=== PATIENT | female | born 1975 | race African-American/Black ===

== ENCOUNTER 2017-01-19 05:34 | Emergency (ER) | payer OTHER ==
[2017-01-19 06:05] VITALS: BMI 29.0
--- NOTE | 2017-01-19 06:13 | PDOC ---
History of Present Illness - General Stated Complaint: COUGHING Time Seen by Provider: 01/19/17 05:54 - History of Present Illness Initial Comments: 01/19/17 06:09 Patient is a 41 y.o. female @ 36 weeks gestation who presents to our ED with acute exacerbation of a 2 week h/o of dry intermittently productive cough, though patient did note blood streaks in cough yesterday and today prompting her visit to the Emergency Department. Patient denies any associated fevers/ night sweats, chills, nausea, vomiting, diarrhea or constipation but endorse pleuritic chest pain. Patient's children @ bedside also have been coughing and were evaluated by ecological economist earlier this week and given cough supressant. Patient is a [place] immigrant and denies any recent travel or known TB contacts Past History - Past Medical History Allergies/Adverse Reactions: Allergies Allergy/AdvReac Type Severity Reaction Status Date / Time No Known Allergies Allergy Verified 01/19/17 06:11 Home Medications: Ambulatory Orders Acetaminophen 325 mg PO PRN 01/19/17 Diphenhydramine [Benadryl Oral Solution -] 12.5 mg PO Q4H 01/19/17 Multivit with Iron-Minerals [Compete] 1 each PO DAILY 01/19/17 - Suicide/Smoking/Psychosocial Hx Smoking History: Never smoked Hx Alcohol Use: No Drug/Substance Use Hx: No Review of Systems - Review of Systems Constitutional: No: Chills, Fever Respiratory: Yes: Cough *Physical Exam - Vital Signs Last Vital Signs Temp Pulse Resp BP Pulse Ox 97.7 F 97 H 18 113/66 97 01/19/17 06:02 01/19/17 06:02 01/19/17 06:02 01/19/17 06:02 01/19/17 06:02 - Physical Exam General Appearance: Yes: Nourished, Appropriately Dressed Neck: positive: Trachea midline, Supple. negative: Lymphadenopathy (R), Lymphadenopathy (L) Respiratory/Chest: positive: Lungs Clear, Normal Breath Sounds. negative: Labored Respiration, Rapid RR, Crackles, Rales, Rhonchi, Stridor, Wheezing Cardiovascular: positive: S1, S2, Tachycardia Gastrointestinal/Abdominal: positive: Normal Bowel Sounds, Soft Musculoskeletal: negative: CVA Tenderness (R), CVA Tenderness (L) Extremity: positive: Normal Capillary Refill, Normal Inspection Integumentary: positive: Normal Color, Dry, Warm Neurologic: positive: Fully Oriented, Alert ED Treatment Course - LABORATORY CBC & Chemistry Diagram: 01/19/17 06:43 01/19/17 06:43 Medical Decision Making - Medical Decision Making 01/19/17 06:13 Patient is a 41 y.o. female who presents with exacerbation of a 2 week h/o cough. As patient denies fevers/night sweats, clinical suspicion for TB is low. Patient's children @ bedside were medically evaluated for similar symptoms. On PE, lungs CLTA B/L suggesting upper airway disease PLAN: 1. CBC, CMP 2. UA 3. IV NS 4. Benadryl --> dry secretions, reduce cough by decreasing post nasal drip Reasess with planned dispo to OB evaluation then home 01/19/17 07:22 Patient signed out to Dr. Deng (Resident) and Dr. Brown (Attending) *DC/Admit/Observation/Transfer Diagnosis at time of Disposition: Cough - Referrals Referrals: Lincoln Mandel MD [Primary Care Provider] - - Patient Instructions - Post Discharge Activity
--- NOTE | 2017-01-19 06:16 | PDOC ---
Attending Attestation - Resident Resident Name: Rosalia Suarez - ED Attending Attestation I have performed the following: I have examined & evaluated the patient, The case was reviewed & discussed with the resident, I agree w/resident's findings & plan, Exceptions are as noted <Laura Dsouzaan - Last Filed: 01/19/17 06:15> - HPI HPI: 01/19/17 06:34 Patient is a 41 year old female, Full term ,with a significant past medical history of who presents to the ED with complaints of cough that began 2 weeks ago. Patient reports experiencing slight cough beginning 2 weeks ago but states it intensifying last night. She reports noticing bloody streaks mixed with sputum in her productive cough last night and this morning. Patient states the presence of blood within her sputum worried her and prompted her to come to the ED for further evaluation. She reports to be experiencing intermittent chest pain secondary to cough. Patient states she is currently in full term and is scheduled to be induced next week. Denies nausea, vomiting. Denies fever, chills. Denies abdominal cramps, vaginal bleeding. Denies contact with sick individuals, out of state travel. Denies any other symptoms. Allergies: None Social history: Lives with family. No smoking. No alcohol. No illicit drugs. Surgical history: None PMD: Dr. Lincoln Mandel <Harlan Calvo - Last Filed: 01/19/17 06:34>
[2017-01-19] MEDS ORDERED: SODIUM CHLORIDE 0.9% 1000 ML INFUS.BAG IV ONE (06:19)
[2017-01-19 07:11] LABS: URINE APPEARANCE SLCLOUDY; URINE BILIRUBIN NEGATIVE (NEGATIVE); URINE BLOOD 1+ (NEGATIVE); URINE COLOR LTYELLOW; URINE GLUCOSE (UA) NEGATIVE (NEGATIVE); URINE KETONE NEGATIVE (NEGATIVE); URINE LEUK ESTERASE NEGATIVE (NEGATIVE); URINE NITRITE NEGATIVE (NEGATIVE); URINE PROTEIN NEGATIVE (NEGATIVE); URINE UROBILINOGEN NEGATIVE mg/dL (0.2-1.0)
[2017-01-19 07:17] LABS: BASOPHIL 0.6 % (0-2.0); EOSINOPHIL 3.1 % (0-4.5); MCH 30.9 pg (25.7-33.7); MCHC 32.7 g/dl (32.0-36.0); MEAN CELL VOLUME 94.5 fl (80-96); MEAN PLT VOLUME 10.2 fl (7.5-11.1); NEUTROPHILS 53.1 % (42.8-82.8); PLATELET COUNT 151 K/MM3 (134-434); RDW 13.7 % (11.6-15.6); WHITE BLOOD COUNT 5.4 K/mm3 (4.0-10.0)
[2017-01-19 07:24] LABS: URINE BACTERIA MANY /hpf (NONE SEEN); URINE MUCUS RARE; URINE RBC 6 /hpf (0-3); URINE WBC 1 /hpf (3-5)
--- NOTE | 2017-01-19 07:24 | PDOC ---
*Physical Exam - Vital Signs Last Vital Signs Temp Pulse Resp BP Pulse Ox 97.7 F 97 H 18 113/66 98 01/19/17 06:07 01/19/17 06:07 01/19/17 06:07 01/19/17 06:07 01/19/17 06:07 ED Treatment Course - LABORATORY CBC & Chemistry Diagram: 01/19/17 06:43 01/19/17 06:43 - ADDITIONAL ORDERS Additional order review: Laboratory Results 01/19/17 06:43 Urine Color Ltyellow Urine Appearance Slcloudy Urine pH 6.0 Ur Specific Kirk 1.010 Urine Protein Negative Urine Glucose (UA) Negative Urine Ketones Negative Urine Blood 1+ H Urine Nitrite Negative Urine Bilirubin Negative Urine Urobilinogen Negative - Medications Given in the ED: ED Medications Discontinued Medications Generic Name Dose Route Start Last Admin Trade Name Freq PRN Reason Stop Dose Admin Sodium Chloride 1,000 ml 01/19/17 06:19 01/19/17 06:53 Normal Saline - IV 01/19/17 06:20 1,000 ml ONCE ONE Administration Medical Decision Making - Medical Decision Making 01/19/17 07:24 Care taken over from Dr. Suarez. 01/19/17 08:16 Patient reports some relief from cough and labs grossly wnl as below. Will discharge to be evaluated by [employer] before returning home. Laboratory Results - last 24 hr 01/19/17 01/19/17 01/19/17 06:43 06:43 06:43 WBC 5.4 RBC 3.53 L Hgb 10.9 Hct 33.4 MCV 94.5 MCH 30.9 MCHC 32.7 RDW 13.7 Plt Count 151 MPV 10.2 Neutrophils % 53.1 Lymphocytes % 30.9 Monocytes % 12.3 H Eosinophils % 3.1 Basophils % 0.6 Sodium 139 Potassium 4.3 Chloride 109 H Carbon Dioxide 22 Anion Gap 8 BUN 5 L Creatinine 0.5 L Creat Clearance w eGFR > 60 Random Glucose 93 Calcium 8.6 Total Bilirubin 0.4 AST 20 ALT 13 Alkaline Phosphatase 190 H Total Protein 6.2 L Albumin 2.3 L Beta HCG, Quant 83885.9 Urine Color Ltyellow Urine Appearance Slcloudy Urine pH 6.0 Ur Specific Kirk 1.010 Urine Protein Negative Urine Glucose (UA) Negative Urine Ketones Negative Urine Blood 1+ H Urine Nitrite Negative Urine Bilirubin Negative Urine Urobilinogen Negative Urine WBC (Auto) 1 Urine RBC (Auto) 6 Ur Epithelial Cells Moderate Urine Bacteria Many Urine Mucus Rare *DC/Admit/Observation/Transfer Diagnosis at time of Disposition: Cough - Discharge Dispostion Disposition: HOME - Referrals Referrals: Lincoln Mandel MD [Primary Care Provider] - - Patient Instructions Printed Discharge Instructions: DI for Cough -- Adult Additional Instructions: Please return if any fever, pain, or other concerning symptoms. - Post Discharge Activity
[2017-01-19 07:38] LABS: ALBUMIN 2.3 g/dl (3.4-5.0); ALK PHOS 190 U/L (45-117); ANION GAP 8 (8-16); BILIRUBIN,TOTAL 0.4 mg/dL (0.2-1.0); CALCIUM 8.6 mg/dL (8.5-10.1); CO2 22 mmol/L (21-32); CREATININE 0.5 mg/dL (0.55-1.02); GLUCOSE,RANDOM 93 mg/dL (74-106); SGOT/AST 20 U/L (15-37); SGPT/ALT 13 U/L (12-78); TOT PROT 6.2 g/dl (6.4-8.2)
[2017-01-19 09:23] VITALS: BP 123/80; PULSE 90; TEMP 98.3
[2017-01-19 17:53] LABS: URINE LEUK ESTERASE Negative (NEGATIVE)
== END 2017-01-19 09:55 | disposition home or self-care (01) ==
LOC: JER 05:34
PROC: 3E0F7GC Introduction of Other Therapeutic Substance into Respiratory Tract, Via Natural or Artificial Opening (ICD-10-PCS; principal; 2017-01-19)
DX: O26.893 Other specified pregnancy related conditions, third trimester (principal); Z3A.32 32 weeks gestation of pregnancy; R05 Cough
CPT/HCPCS: 36415; 80053; 81003; 81015; 84702; 85025; 87804; 96360; 99282-25

== ENCOUNTER 2017-08-19 08:58 | Emergency (ER) | payer OTHER ==
[2017-08-19 09:15] VITALS: TEMP 99; BMI 25.0
--- NOTE | 2017-08-19 09:15 | PDOC ---
Attending Attestation - Resident Resident Name: Rajesh Christian - Medical Decision Making 08/19/17 10:02 Pt presents to the ED complaining of pelvic pain immediately following her period. Abdomen is non tender. Differential includes ovarian cyst, fibroid, dysmenorrhea, endometriosis, PID, less likely ovarian torsion. unlikely appendicitis, given her prior history of a similar episode that immediately followed her period and her lack of abdominal tenderness. Will check labs and pelvic exam, check transvaginal US and reassess. Will give pain control with IV toradol. <Meryl Brown - Last Filed: 08/19/17 10:00> - HPI HPI: The patient is a 42 year old female with a PMHx of 3 previous C-sections ( recent 01/2017) who presents with lower abdominal pain and cramping since this morning. She states that the abdominal pain began post-menses and describes it as constant cramping that does not radiate. She also notes nausea and vomitting (non-bilious, non-bloody) as well a non-bloody diarrhea (4x). She reports having this pain once before approximately 2 weeks ago. At the time, she was seen at [facility] and had an US where they found an ovarian cyst. LMP ended yesterday. She notes recent IUD placement after her last 01/2017. She has an appointment with her IMAGERY ANALYST this week. Denies fever, chills. Denies any urinary complaints. 08/19/17 11:31 - Physicial Exam PE: GENERAL: Awake, alert, and fully oriented, in no moderate distress HEAD: No signs of trauma EYES: PERRLA, EOMI, sclera anicteric, conjunctiva clear ENT: Auricles normal inspection, hearing grossly normal, nares patent, oropharynx clear without exudates. Moist mucosa NECK: Normal ROM, supple, no lymphadenopathy, JVD, or masses LUNGS: Breath sounds equal, clear to auscultation bilaterally. No wheezes, and no crackles HEART: Regular rate and rhythm, normal S1 and S2, no murmurs, rubs or gallops ABDOMEN: Soft, nontender, normoactive bowel sounds. No guarding, no rebound. No masses EXTREMITIES: Normal range of motion, no edema. No clubbing or cyanosis. No cords, erythema, or tenderness NEUROLOGICAL: Cranial nerves II through XII grossly intact. Normal speech, normal gait SKIN: Warm, Dry, normal turgor, no rashes or lesions noted. 08/19/17 11:30 <Alexandra Sims - Last Filed: 08/19/17 11:32>
[2017-08-19] MEDS ORDERED: KETOROLAC TROMETHAMINE 30 MG/1 ML VIAL IVPUSH ONE (09:39)
--- NOTE | 2017-08-19 09:58 | PDOC ---
History of Present Illness - General Chief Complaint: Pain Stated Complaint: ABD PAIN Time Seen by Provider: 08/19/17 09:15 History Source: Patient, Family () Exam Limitations: No Limitations - History of Present Illness Initial Comments: The patient is a 42F with a PMH of C/S x3 (last 01/2017) who presents with generalized cramping pelvic pain since 0600 today. She states the pain does not radiate is associated with following her menses, N and NBNB Vx3, as well as non- bloodly diarrhea x4. She reports having this pain once before two weeks ago and was seen at [facility] where her states they did an US and thinks they found a ovarian cyst. She denies fevers, chills, changes in menstruation, clots , dysuria, or hematuria. LMP ended yesterday. She also reports that her last C/S was 01/2017 at which time she had an IUD placed. She has not had an IUD before this one. She also has an appointment with her pillar worker this coming week. 08/19/17 09:47 08/19/17 10:07 Severity: moderate Past History - Travel Traveled outside of the country in the last 30 days: No Close contact w/someone who was outside of country & ill: No - Past Medical History Allergies/Adverse Reactions: Allergies Allergy/AdvReac Type Severity Reaction Status Date / Time No Known Allergies Allergy Verified 08/19/17 09:15 Home Medications: Ambulatory Orders Ibuprofen 800 mg PO TID PRN 10 Days #30 tablet 08/19/17 Oxycodone HCl/Acetaminophen [Percocet 5-325 mg Tablet] 1 - 2 tab PO Q4H CVA: No COPD: No CHF: No Diabetes: No GI Disorders: No HTN: No Kidney Stones: No Seizures: No - Surgical History Abdominal Surgery: Yes (C/S x3) - Reproductive History LMP Normal: No (associated with increased pain x1) (#): 3 Para: 3 Ectopic : No Endometrial CA: No Tubal Ligation: No - Immunization History Immunization Up to Date: Yes - Suicide/Smoking/Psychosocial Hx Smoking History: Never smoked Hx Alcohol Use: No Drug/Substance Use Hx: No Review of Systems - Review of Systems Constitutional: Yes: Chills. No: Fever, Weakness HEENTM: No: Blurred Vision, Nose Congestion, Throat Pain, Throat Swelling, Difficulty Swallowing Respiratory: No: Orthopnea, Shortness of Breath, SOB with Exertion Cardiac (ROS): No: Chest Pain, Palpitations, Syncope ABD/GI: Yes: See HPI : No: Burning, Dysuria, Discharge, Hematuria Musculoskeletal: No: Muscle Pain, Muscle Weakness Integumentary: No: Pruritus, Rash Neurological: No: Headache, Numbness Psychiatric: No: Anxiety, Depression Endocrine: No: Intolerance to Cold, Intolerance to Heat Hematologic/Lymphatic: No: Blood Clots, Easy Bruising, Bleeding Diathesis *Physical Exam - Vital Signs Last Vital Signs Temp Pulse Resp BP Pulse Ox 99 F 73 18 117/103 100 08/19/17 08:59 08/19/17 08:59 08/19/17 08:59 08/19/17 08:59 08/19/17 08:59 - Physical Exam General Appearance: Yes: Moderate Distress HEENT: positive: JOHN, Normal ENT Inspection, Normal Voice Neck: positive: Trachea midline, Supple. negative: Lymphadenopathy (R), Lymphadenopathy (L) Respiratory/Chest: positive: Lungs Clear, Normal Breath Sounds Cardiovascular: positive: Regular Rhythm, Regular Rate, S1, S2. negative: Edema , JVD, Murmur Vascular Pulses: Femoral (R): 2+, Femoral (L): 2+, Carotid (R): 2+, Carotid (L) : 2+, Dorsalis-Pedis (R): 2+, Doralis-Pedis (L): 2+ Female Pelvic Exam: positive: other. negative: vaginal bleeding (Speculum exam wihtout significant findings. Bimanual exam significant for cervical motion tenerness and palpation of the left adenexa) Gastrointestinal/Abdominal: positive: Normal Bowel Sounds, Soft. negative: Distended, Guarding, Rebound Musculoskeletal: negative: CVA Tenderness, Decreased Range of Motion Extremity: positive: Normal Capillary Refill Integumentary: positive: Normal Color, Warm Neurologic: positive: dye penetrant testing technician II-XII NML intact, Fully Oriented, Alert, Motor Strength 5/5 ED Treatment Course - LABORATORY CBC & Chemistry Diagram: 08/19/17 10:20 08/19/17 10:20 Medical Decision Making - Medical Decision Making The patient is a 42F who presents with pelvic pain s/p menses since 0600 today. She was recently seen at [facility] and may have been told she has an ovarian cyst. DDx: GC/chlamydia/STI, ovarian cyst, ovarian torsion, uterine fibroid, ectopic ED Course: -BMP, CBC, UA, UPreg, Pelvic US Pelvic exam sig for Left sided tenderness and cervical motion tenderness -GC chlamydia cervical culture sent 08/19/17 11:40 Pelvic US sig for small R ovarian cyst Patient determined to be suitable for DC -Cramping Pelvic Pain --Ibuprofen 800mg PO Q8H PRN 08/19/17 12:59 *DC/Admit/Observation/Transfer Diagnosis at time of Disposition: Abdominal cramping - Discharge Dispostion Disposition: HOME Condition at time of disposition: Good Decision to Admit order: No - Prescriptions Prescriptions: Ibuprofen 800 mg PO TID PRN 10 Days #30 tablet PRN Reason: Pain - Referrals Referrals: Lincoln Mandel MD [Primary Care Provider] - - Patient Instructions Additional Instructions: You were seen today for pelvic cramping. Your ultrasound was significant for Right ovarian simple cyst. You were prescribed Ibuprofen which you can take 800mg up to three times a day. You should keep your appointment with you Electronics Technology Instructor this week. Return to the Emergency Department if your pain worsens , you begin experiencing abnormal vaginal bleeding, or fevers. - Post Discharge Activity
[2017-08-19] MEDS ORDERED: KETOROLAC TROMETHAMINE 30 MG/1 ML VIAL ONE (10:05)
[2017-08-19 10:27] LABS: HEMATOCRIT 37.2 % (32.4-45.2); HEMOGLOBIN 12.2 GM/dL (10.7-15.3); MCH 29.2 pg (25.7-33.7); MCHC 32.8 g/dl (32.0-36.0); MEAN PLT VOLUME 8.8 fl (7.5-11.1); PLATELET COUNT 222 K/MM3 (134-434); RBC 4.17 M/mm3 (3.60-5.2); RDW 13.9 % (11.6-15.6); WHITE BLOOD COUNT 9.8 K/mm3 (4.0-10.0)
[2017-08-19 11:00] LABS: ANION GAP 5 (8-16); BLOOD UREA NITROGEN 14 mg/dL (7-18); CALCIUM 8.8 mg/dL (8.5-10.1); CHLORIDE 111 mmol/L (98-107); CO2 23 mmol/L (21-32); CREATININE 0.9 mg/dL (0.55-1.02); GLUCOSE,RANDOM 113 mg/dL (74-106); POTASSIUM 4.1 mmol/L (3.5-5.1); SODIUM 139 mmol/L (136-145)
[2017-08-19 11:50] LABS: HCG,QUALITATIVE URINE NEGATIVE
[2017-08-19 12:22] LABS: URINE APPEARANCE TURBID; URINE BILIRUBIN NEGATIVE (<2.0 mg/dL); URINE COLOR YELLOW; URINE GLUCOSE (UA) NEGATIVE (NEGATIVE); URINE KETONE TRACE (NEGATIVE); URINE LEUK ESTERASE TRACE (NEGATIVE); URINE NITRITE NEGATIVE (NEGATIVE); URINE PROTEIN NEGATIVE (NEGATIVE); URINE UROBILINOGEN NEGATIVE mg/dL (0.2-1.0)
[2017-08-19 12:37] LABS: EPI CELLS RARE /HPF (FEW); TRIPLE PHOSPHATE CRYSTAL RARE /hpf (NONE SEEN); URIC ACID CRYSTALS RARE /hpf (NONE SEEN); URINE MUCUS RARE
[2017-08-19 13:51] VITALS: BP 100/75; PULSE 69
== END 2017-08-19 13:52 | disposition home or self-care (01) ==
LOC: JER 08:58
PROC: 3E0333Z Introduction of Anti-inflammatory into Peripheral Vein, Percutaneous Approach (ICD-10-PCS; principal; 2017-08-19)
DX: N83.201 Unspecified ovarian cyst, right side (principal)
CPT/HCPCS: 36415; 76830-TC; 80048; 81003; 81015; 84703; 85027; 87491; 87591; 96374; 99283-25

== ENCOUNTER 2020-05-18 04:08 | Day surgery (SDC) | payer OTHER ==
[2020-05-14 09:20] VITALS: BMI 29.9
[2020-05-18] MEDS ORDERED: GLYCOPYRROLATE 0.2 MG/1 ML VIAL ONE (10:27)
[2020-05-18] MEDS ORDERED: LIDOCAINE HCL/PF 2% SDV 5ML VIAL ONE (10:27)
[2020-05-18] MEDS ORDERED: DEXAMETHASONE SOD PHOSPHATE 4 MG/1 ML VIAL ONE (10:27)
[2020-05-18] MEDS ORDERED: MIDAZOLAM HCL 2 MG/2 ML SINGLE DOSE VIAL ONE (10:28)
[2020-05-18] MEDS ORDERED: ONDANSETRON 4 MG/2 ML VIAL IVPUSH PRN (11:36)
[2020-05-18] MEDS ORDERED: IBUPROFEN 800 MG/8 ML IJ IVPB PRN (11:36)
[2020-05-18] MEDS ORDERED: IBUPROFEN 600 MG TABLET (FP) PO PRN (11:36)
[2020-05-18] MEDS ORDERED: oxyCODONE HCL 5 MG TABLET PO PRN (11:36)
[2020-05-18] MEDS ORDERED: ELECTROLYTE-148 SOLN 1,000 ML IV SCH (11:45)
[2020-05-18] MEDS ORDERED: LACTATED RINGERS SOLUTION 1,000 ML IV SCH (12:30)
[2020-05-18 12:46] VITALS: BP 121/81; PULSE 71; TEMP 97.2
== END 2020-05-18 14:40 | disposition home or self-care (01) ==
LOC: JASU-SURG 04:08
PROVIDERS: ATTEND Obstetrics & Gynecology
PROC: 0UDB7ZX Extraction of Endometrium, Via Natural or Artificial Opening, Diagnostic (ICD-10-PCS; 2020-05-18)
PROC: 0UJD8ZZ Inspection of Uterus and Cervix, Via Natural or Artificial Opening Endoscopic (ICD-10-PCS; 2020-05-18)
PROC: 0UB98ZZ Excision of Uterus, Via Natural or Artificial Opening Endoscopic (ICD-10-PCS; principal; 2020-05-18 10:00)
PROC: 0UB97ZX Excision of Uterus, Via Natural or Artificial Opening, Diagnostic (ICD-10-PCS; 2020-05-18 10:00)
DX: N92.1 Excessive and frequent menstruation with irregular cycle (principal); D25.0 Submucous leiomyoma of uterus; N84.0 Polyp of corpus uteri
CPT/HCPCS: 81025; 86850; 86900; 86901; 88305-TC; 94760

== ENCOUNTER 2021-06-07 17:24 | Emergency (ER) | payer OTHER ==
[2021-06-07 17:34] VITALS: BP 111/71; PULSE 86; TEMP 98.4; BMI 26.6
[2021-06-07 19:48] LABS: EOS % 5.4 % (0-4.5); HEMATOCRIT 38.2 % (32.4-45.2); HEMOGLOBIN 12.3 GM/dL (10.7-15.3); LYMPH % 39.8 % (8-40); MCH 28.8 pg (25.7-33.7); MCHC 32.1 g/dl (32.0-36.0); MEAN CELL VOLUME 89.7 fl (80-96); MEAN PLT VOLUME 8.7 fl (7.5-11.1); MONO % 7.9 % (3.8-10.2); NEUT % 45.9 % (42.8-82.8); PLATELET COUNT 235 10^3/uL (134-434); RBC 4.25 M/mm3 (3.60-5.2); RDW 13.4 % (11.6-15.6); WHITE BLOOD COUNT 4.4 K/mm3 (4.0-10.0)
[2021-06-07 19:51] LABS: EPI CELLS >36 /uL (0-25.1); HYALINE CASTS 1 /uL (0-3.1); PH,URINE 7.5 (5.0-8.0); URINE APPEARANCE CLEAR; URINE BACTERIA 1105 /uL (0-1359); URINE BILIRUBIN NEGATIVE (NEGATIVE); URINE COLOR YELLOW; URINE GLUCOSE (UA) NEGATIVE (NEGATIVE); URINE KETONE NEGATIVE (NEGATIVE); URINE LEUK ESTERASE NEGATIVE (NEGATIVE); URINE NITRITE NEGATIVE (NEGATIVE); URINE PROTEIN NEGATIVE (NEGATIVE); URINE RBC 3 /uL (0-23.9); URINE UROBILINOGEN 0.2 mg/dL (0.2-1.0); URINE WBC 3 /uL (0-25.8)
[2021-06-07] MEDS ORDERED: KETOROLAC TROMETHAMINE 15 MG/ML VIAL IVPUSH ONE (20:13)
[2021-06-07 20:17] LABS: ALBUMIN 3.8 g/dl (3.4-5.0); BLOOD UREA NITROGEN 9.4 mg/dL (7-18)
[2021-06-07 20:18] LABS: CALCIUM 9.1 mg/dL (8.5-10.1)
[2021-06-07 20:21] LABS: CREATININE 0.9 mg/dL (0.55-1.3)
[2021-06-07 20:22] LABS: BILIRUBIN,TOTAL 0.4 mg/dL (0.2-1); TOT PROT 7.8 g/dl (6.4-8.2)
[2021-06-07] MEDS ORDERED: KETOROLAC TROMETHAMINE 15 MG/ML VIAL ONE (20:30)
[2021-06-07] MEDS ORDERED: IBUPROFEN 400 MG TABLET (FP) PO ONE ×2 (21:57→21:58)
== END 2021-06-07 22:01 | disposition home or self-care (01) ==
LOC: JER 17:24
PROC: 3E033GC Introduction of Other Therapeutic Substance into Peripheral Vein, Percutaneous Approach (ICD-10-PCS; principal; 2021-06-07)
DX: D25.9 Leiomyoma of uterus, unspecified (principal); R25.2 Cramp and spasm
CPT/HCPCS: 36415; 76830-TC; 80053; 81003; 84703; 85025; 86850; 86900; 86901; 87086; 87186; 87491; 87591; 96374; 99284-25